=== PATIENT | male | born 1970 | race Caucasian/White ===

== ENCOUNTER → 2016-08-09 | Outpatient (CLI) | payer SELFPAY ==
--- NOTE | 2016-08-09 15:55 | US ---
EXAMINATION TYPE: US abdomen limited DATE OF EXAM: 08/09/2016 COMPARISON: NONE CLINICAL HISTORY: K76.89 Liver Cyst; Maternal history of polycystic liver. EXAM MEASUREMENTS: Liver Length: 17.8 cm Gallbladder Wall: 0.2 cm CBD: 0.3 cm Right Kidney: 13.5 x 6.8 x 4.9 cm Pancreas: limitedly seen due to overlying bowel gas Liver: multiple liver cysts with largest left lobe cyst = 2.1 x 2.0 x 2.1cm and largest right Lobe c yst = 4.2 x 4.3 x 3.6cm Gallbladder: wnl Evidence for sonographic Johnson's sign: No CBD: wnl Right Kidney: wnl Limited views of the pancreas are normal. The liver is prominent measuring 18 cm. There are multiple cystic lesions within the liver. The large st in the left lobe measures 2.1 cm. Largest in the right lobe measures 4.3 cm. Gallbladder is unremarkable. There is no evidence of cholelithiasis. Gallbladder wall measures 2 mm. The disc on hepatic duct measures 3 mm. The right kidney is unremarkable. Limited views of the aorta and IVC are normal. IMPRESSION: MULTIPLE HEPATIC CYSTS.
== END | disposition home or self-care (01) ==
LOC: RADUSWWP 15:05
PROVIDERS: ATTEND Family Medicine
DX: K76.89 Other specified diseases of liver (principal)
CPT/HCPCS: 76705

== ENCOUNTER 2021-06-29 10:54 | Day surgery (SDC) | payer OTHER ==
[2021-06-28 10:36] VITALS: BMI 28.5
[~2021-06-29 10:54] MED LIST: LACTATED RINGERS 1,000 ML IV SCH
[2021-06-29 11:19] VITALS: TEMP 97.6
[2021-06-29] MEDS ORDERED: PROPOFOL 10 MG/ML 20 ML VIAL IV ONE (13:02)
--- NOTE | 2021-06-29 13:24 | P.PCN ---
Date of Procedure: 06/29/21 Procedure(s) Performed: BRIEF HISTORY: Patient is a 51-year-old pleasant white male scheduled for an elective colonoscopy as a part of screening for colorectal neoplasia. PROCEDURE PERFORMED: Colonoscopy with snare polypectomy and biopsy. PREOPERATIVE DIAGNOSIS: Greening for colon cancer. IV sedation per Anesthesia. PROCEDURE: After informed consent was obtained, the patient, was brought into the endoscopy unit. IV sedation was administered by Anesthesia under continuous monitoring. Digital rectal examination was normal. Initially the Olympus CF-160 flexible video colonoscope was then inserted in the rectum, gradually advanced into the cecum without any difficulty. Careful examination was performed as the scope was gradually being withdrawn. Ileocecal valve and the appendiceal orifice were visualized and appeared normal. Prep was fair. In the base of the cecum there was a small patch of erythema which was biopsied. Mucosa of the cecum, ascending colon, transverse colon, descending colon, sigmoid colon appeared normal. The rectosigmoid colon at 20 cm from anal was there was a 1 cm polyp removed by snare polypectomy.the rectum appeared normal. Retroflexion was performed in the rectum and no lesions were seen. The patient tolerated the procedure well. IMPRESSION: 1 cm rectosigmoid polyp status post polypectomy Mild patchy area of erythema noted in the base of the cecum status post biopsy RECOMMENDATIONS: Findings of this examination were discussed with the patient as well as his family. He was advised to follow with the biopsy results. If the biopsy reveals adenoma he can have a repeat colonoscopy in 3 years..
[2021-06-29 14:06] VITALS: BP 141/95; PULSE 78; RESP 15
== END 2021-06-29 14:10 | disposition home or self-care (01) ==
LOC: ORWHC2ENDO 10:54
PROVIDERS: ATTEND Internal Medicine Gastroenterology
DX: Z12.11 Encounter for screening for malignant neoplasm of colon (principal); D12.7 Benign neoplasm of rectosigmoid junction; Z79.899 Other long term (current) drug therapy
CPT/HCPCS: 88305; 45380; 45385; J2704

== ENCOUNTER → 2023-08-14 | Outpatient (CLI) | payer BC ==
--- NOTE | 2023-08-14 12:19 | US ---
EXAMINATION TYPE: US liver DATE OF EXAM: 08/14/2023 COMPARISON: US 2017 CLINICAL INDICATION: Male, 53 years old with history of R74.01 ELEVATED LIVER LEVELS Q44.6 CYSTIC DIS EASE; TECHNIQUE: Multiple sonographic images of the right upper quadrant are obtained. FINDINGS: EXAM MEASUREMENTS: Liver Length: 19.6 cm Gallbladder Wall: 0.2 cm CBD: 0.3 cm Right Kidney: 12.1 x 5.6 x 6.4 cm Pancreas: visualized portions wnl, limited by overlying midline bowel gas Liver: enlarged with multiple cysts - largest in left lobe 4.4 x 3.7 x 3.6cm, largest in right lobe 6.1 x 6.0 x 6.3cm Gallbladder: wnl Evidence for sonographic Johnson's sign: no CBD: visualized portions wnl, limited by overlying bowel gas Right Kidney: wnl IMPRESSION: 1. Normal gallbladder and biliary tree. 2. Hepatomegaly with multiple innumerable hepatic cysts unchanged compared to previous. 3. Limited evaluation of the 4. Normal right kidney pancreas
== END | disposition home or self-care (01) ==
LOC: RADUSWWP 09:11
PROVIDERS: ATTEND Family Medicine
DX: R74.01 Elevation of levels of liver transaminase levels (principal); K76.89 Other specified diseases of liver; R16.0 Hepatomegaly, not elsewhere classified; Q44.6 Cystic disease of liver
CPT/HCPCS: 76705